=== PATIENT | female | born 2000 | race Caucasian/White ===

== ENCOUNTER 2023-10-19 10:17 | Emergency (ER) | payer BC, SELFPAY ==
[2023-10-19 10:20] VITALS: BP 131/91
--- NOTE | 2023-10-19 11:08 | ED.GENMED ---
History of Present Illness
General
Chief Complaint: Anal/Rectal Problem
Source: patient and other (Boyfriend ZOE)
Exam Limitations: none
Time Seen by Provider: 10/19/23 10:46
Travel History
Have you had any contact with someone who has COVID-19?: No
Do you have any symptoms of coronavirus? Fever > 100 degrees, chills, cough, shortness of breath, sore throat, loss of taste or smell, muscle aches, or headache?: No
History of Present Illness
History of Present Illness:
23-year-old female with complaints of a 'hemorrhoid that she first noted on Saturday that is getting progressively worse. Pain is particularly worse when she tries to sit but also with standing. She is continuing to have bowel movements and she
describes having a soft bowel movement today without black stool or blood. She was at an urgent care on and prescribed a variety of different medications for hemorrhoids which include suppositories, Motrin, Tucks pads, lidocaine, and told
to take sitz bath's. This is not helping her, and her pain continues. When specifically asked about abdominal pain she does note discomfort in the left lower quadrant that she thinks may be 'muscular'. This is without radiation, exacerbating,
relieving factors. She denies vomiting but she is mildly anorexic and intermittently nauseous. She denies fever, chills, chest pain, shortness of breath, urinary symptoms, back pain, or other complaints.
Past History
Past History
ED Past Medical History: Asthma, Psychiatric (Anxiety) and Other (Sleep apnea, IBS)
ED Past Surgical History: None
Social History
Tobacco: Vaping (Marijuana)
Alcohol: Occasional
Drug: Marijuana
Personal: Single
Living: with family
Phy Exam
Physical Exam
Physical Exam:
GENERAL: Alert , in no apparent distress
EYE: pupils equal and reactive
NECK: Supple, no significant adenopathy.
ENT: o/p clr, mmm.
CARDIAC: Regular rate and rhythm .
LUNGS: Clear breath sounds bilaterally, no acute respiratory distress, no wheezes/rales/rhonchi
ABDOMEN: Soft, min llq tenderness, no r/g, no cvat
NEUROLOGICAL: Alert and oriented, no focal neuro deficits
SKIN: Warm and dry, skin intact.
MUSCULOSKELETAL: No edema, well perfused.
PSYCH: Normal and appropriate interaction.
RECTAL: suspect superficial abscess at 12-1 o'clock position, fluctuant/tender/sl erythematous, no hemorrhoid or other abnl noted, no streaking or active drainage.
Course
Orders/Labs/Results
Orders:
Orders
10/19/23 11:07
CT Abd/Pel (IV only)-[facility] only Urgent
Comment:
Reason For Exam: llq pain, suspect rectal abscess
Cardiac Monitoring- Treatment ONCE
Lorazepam [Ativan] 0.5 mg IV NOW STA
Morphine Sulfate 4 mg IV NOW STA
Test Result ONCE
10/19/23 11:13
Complete Blood Count/No Diff Urgent
Comprehensive Metabolic Panel Urgent
HCG, Serum Qualitative Screen Urgent
10/19/23 13:14
Morphine Sulfate 6 mg IV NOW STA
10/19/23 14:56
Amoxicillin 875 mg/Clav 125 mg [Augmentin 875 mg/125 mg] 1 tablet PO NOW STA
Abnormal Lab Results
10/19/23
11:13
WBC 16.7 H 10^3/uL
(4.8-10.8)
Glucose 111 H mg/dl
(70-99)
10/19/23 11:13
10/19/23 11:13
Vital Signs
Initial and Last Documented VS:
Initial Vital Signs
Temp Pulse Resp BP Pulse Ox
98.3 F 101 16 131/91 98
10/19/23 10:20 10/19/23 10:20 10/19/23 10:20 10/19/23 10:20 10/19/23 10:20
Last Documented Vital Signs
Temp Pulse Resp BP Pulse Ox
98.3 F 92 21 148/87 97
10/19/23 10:20 10/19/23 15:00 10/19/23 15:00 10/19/23 15:00 10/19/23 15:00
Procedures
Incision/Drainage/Joint Aspiration
Perianal area:
Anethesia: 1% Lidocaine with Epi
Preparation: cleaned with Betadine
Type of procedure: incise and drain
Nature of site: abscess
Description of abscess: greater than 3cm
Loculations broken up: Yes
How much fluid was obtained?: large amount
Fluid description: purulent and foul smelling
Treatment: left open for drainage and antibiotics started
*Critical Care Note
Total Time (30-74mins, 75-104mins- exclusive of procedures): Not Applicable
Update Note
Update Note:
Patient presents to the Emergency Department with ____'hemorrhoid' pain
Number and Complexity of Problems Addressed at the Encounter
� Chronic conditions affecting care:
� Acute Exacerbation and/or Progression of Chronic Illness:
� Differential Diagnosis includes: But not limited to thrombosed hemorrhoid, intractable simple hemorrhoid pain, abscess, etc.
Amount and/or Complexity of Data to be Reviewed and Analyzed
� I performed an independent evaluation of and my interpretation is:
EKG:
CT:read by rads Large left-sided perianal abscess measures approximately 3.5 x 3.0 cm.
Xrays:
Laboratory Studies:leukocytosis (consistent with infx)
Other:
� Review of other/old records reveals:
� Clinical information was obtained by an independent historian: Boyfriend who is at bedside
� Prescriptions/Medications Considered but not given:
� Further testing considered but not performed:
Risk of Complications and/or Morbidity or Mortality of Patient Management
� Social determinants of health affecting care:
� Discussion with other providers (PCP, Hospitalists, Consultants, etc):
� Escalation of care including admission/observation vs risk of discharge considered: 2:52 PM with RN CAT present, patient verbally consented aware of risk and benefits of procedure, given local anesthesia, incision made large
amount of foul-smelling purulent material expressed, area irrigated, and dressed. Patient will be started on oral antibiotics encouraged regular baths and close follow-up.
ED Attending Note
-
Portions of this chart may have been created with voice recognition software.� Occasional wrong word or��sound alike� substitutions may have occurred due to the inherent limitations of voice recognition software.
Discharge Plan
Departure
Patient Disposition: Home (Routine Discharge)
Date of Disposition: 10/19/23
Time of Disposition: 14:53
Patient with high blood pressure during this ER visit?: Yes
Condition: Good
Discharge Problem:
Anal abscess
Instructions: Anal Abscess and Fistula, Adult (DC), How to Do a Sitz Bath, BLOOD PRESSURE
Prescriptions:
New
amoxicillin-pot clavulanate 875-125 mg tablet
1 tab PO BID Qty: 14 0RF
No Action
cefdinir 300 mg capsule
300 mg PO BID Qty: 14 0RF
Referrals:
Brooklyn Pérez MD [Family Provider] -
Willian Gann MD [Active] - Follow up in 2-3 days
Activity Restrictions/Additional Instructions:
IF YOU DEVELOP FEVER, CHILLS, VOMITING, INCREASING NEW OR PERSISTENT PAIN, DIFFICULTY HAVING A BOWEL MOVEMENT, ABDOMINAL PAIN, OR OTHER WORRISOME SIGNS, PLEASE RETURN TO THE ER IMMEDIATELY.
Interventions
Interventions:
*Risk Screen - Suicide Last Done: 10/19/23 10:20
*General Assessment Last Done: 10/19/23 10:20
*Neglect/Abuse Screening Last Done: 10/19/23 10:20
*ED COVID-19 Vaccine History Last Done: 10/19/23 15:30
*Nursing Disposition Last Done: 10/19/23 15:30
ED-Skin Assessment Last Done: 10/19/23 12:06
Discharge Date and Time
Discharge Date/Time: 10/19/23 15:30
Print Language: SAMMARINESE
[2023-10-19] MEDS: MORPHINE SULFATE 4 MG IV (11:19)
[2023-10-19] MEDS: ATIVAN 0.5 MG IV (11:21)
[2023-10-19 11:24] LABS: Hematocrit 37.9 % (37.0-47.0); Hemoglobin 13.8 g/dL (12.0-16.0); Mean Corp Hgb Conc. 36.4 g/dL (33.0-37.0); Mean Corpuscular Hgb 30.7 pg (27.0-31.0); Mean Corpuscular Volume 84.2 fL (81.0-99.0); Mean Platelet Volume 10.1 fL (7.4-10.4); Platelet Count 351 10^3/uL (130-400); Red Cell Dist. Width 11.8 % (11.5-14.5); White Blood Cell Count 16.7 10^3/uL (4.8-10.8)
[2023-10-19 11:25] VITALS: BP 139/90
[2023-10-19 11:35] LABS: HCG, Serum Qualitative Screen Negative
[2023-10-19 11:38] LABS: ALT (SGPT) 25 U/L (0-35); AST (SGOT) 22 U/L (14-36); Albumin 3.9 g/dl (3.5-5.0); Alkaline Phosphatase 108 U/L (38-126); Blood Urea Nitrogen 9 mg/dl (7-17); Calcium 9.4 mg/dl (8.4-10.2); Carbon Dioxide 23 mmol/L (22-30); Chloride 107 mmol/L (98-107); Glucose 111 mg/dl (70-99); Potassium 3.8 mmol/L (3.5-5.1); Sodium 135 mmol/L (135-145); Total Bilirubin 0.4 mg/dl (0.2-1.3); Total Protein 6.9 g/dl (6.3-8.2); eGFR > 60.00
[2023-10-19 12:19] VITALS: BP 108/66
[2023-10-19 13:00] VITALS: BP 121/71
[2023-10-19] MEDS: MORPHINE SULFATE 6 MG IV (13:17)
[2023-10-19 14:00] VITALS: BP 132/79
[2023-10-19 15:00] VITALS: BP 148/87
[2023-10-19] MEDS: AUGMENTIN 875 MG/125 MG 1 TABLET PO (15:10)
== END 2023-10-19 15:30 | disposition home or self-care (01) ==
LOC: EMR 10:17
PROVIDERS: EMERGENCY PHYSICIAN Emergency Medicine; FAMILY PHYSICIAN Family Medicine
DX: K61.0 Anal abscess (principal); R03.0 Elevated blood-pressure reading, without diagnosis of hypertension; K64.9 Unspecified hemorrhoids
CPT/HCPCS: 46050; 99285; 96374; 96375; 96376; 74177; 80053; 84703; 85027; Q9967